=== PATIENT | female | born 2000 | race Caucasian/White ===

== ENCOUNTER 2019-10-13 17:42 | Emergency (ER) | payer BC, SELFPAY ==
--- NOTE | 2019-10-13 18:16 | ED.GENADULT ---
HPI - General Adult General Chief complaint: Upper Respiratory Infection Stated complaint: headache/ear ache/body aches Time Seen by Provider: 10/13/19 18:36 Source: patient Mode of arrival: ambulatory Limitations: no limitations History of Present Illness HPI narrative: 19-year-old female patient presents to the [facility] with complaints of flulike symptoms that started approximately 3 days ago. Patient states she has been having body aches, low-grade fevers, sore throat, slight cough. Patient states she has had some nausea and vomiting symptoms. Patient states she has been having issues with weight loss and vomiting and recently had a scope done but does not know the results yet. Denies any diarrhea or abdominal pain. Denies any or breast-feeding at this time. Patient denies getting a flu shot. Patient states she has been taking DayQuil for her symptoms. Patient states that she does vape. Related Data Home Medications Medication Instructions Recorded Confirmed fluoxetine 60 mg PO DAILY 10/13/19 10/13/19 norelgestromin-ethin.estradiol 1 patch TRANSDERMAL WEEKLY 10/13/19 10/13/19 [Xulane] Allergies Allergy/AdvReac Type Severity Reaction Status Date / Time acetaminophen Allergy Intermediate Swelling Verified 10/13/19 18:39 pamabrom Allergy Intermediate Swelling Verified 10/13/19 18:39 Review of Systems Review of Systems: Narrative: CONSTITUTIONAL: Positive low-grade fever, body aches, chills, and sweats. EYES: Denies visual changes, redness, or discharge. ENT: Positive rhinorrhea, congestion, sore throat, denies otalgia. CARDIOVASCULAR: Denies chest pain, palpitations, or edema. RESPIRATORY: Positive cough, denies dyspnea. GASTROINTESTINAL: Denies abdominal pain, nausea, vomiting, or diarrhea. GENITOURINARY: Denies dysuria or hematuria. SKIN: Denies rash or itching. MUSCULOSKELETAL: Denies back pain, joint pain, or myalgia. NEUROLOGIC: Denies headache, numbness, or weakness. PSYCHIATRIC: Denies anxiety or depression. PMFSH Comments At the time of my signature I agree with nursing past medical history, surgical, social, and family history. There is no relevant family history pertinent to the presenting complaint. Exam Narrative: Exam Narrative: GENERAL: Well-appearing, well-nourished, and in no acute distress. HEAD: Normocephalic, atraumatic. No tenderness noted to frontal maxillary sinuses on palpation. EYES: PERRLA and EOMI. ENT: Nares with erythema and edema noted bilaterally, no rhinorrhea or epistaxis. Mucous membranes moist. Posterior pharynx with no erythema, tonsil enlargement, exudates or lesions present. Bilateral TMs are clear no erythema or foreign bodies in the canal. NECK: Supple. No lymphadenopathy CHEST: Clear to auscultation. No respiratory distress. Patient able to talk in clear complete sentences. HEART: Regular rate and rhythm. No murmur heard. Normal peripheral pulses. ABDOMEN: Soft, nontender, nondistended, normal active bowel sounds. EXTREMITIES: Normal range of motion. No edema. SKIN: Warm, dry, no rash. NEURO: No focal deficits. Alert and oriented x3. Course Reevaluation(s) Reevaluation #1: Notify patient that she is positive today for influenza B. Discussed with patient that she is outside the timeframe to receive antivirals however she can continue treating herself with [id number] Tylenol, Motrin and [id number] cold and flu medication. Discussed patient I will write her off for work today tomorrow as well as over the weekend as long she is fever free she can go back on Thursday. Patient verbalized understanding denies any other questions or concerns at this time. Date: 10/13/19 Time: 18:51 Vital Signs Vital signs: Vital signs reviewed. Medical Decision Making Differential Diagnosis Differential Diagnosis: Differential diagnosis: Allergic rhinitis, chronic sinusitis, tonsillitis, acute sinusitis, infectious mononucleosis, seasonal influenza, pertussis, diphtheri
[2019-10-13 18:26] VITALS: BP 124/66; PULSE 112; RESP 14; O2SAT 100
== END 2019-10-13 18:55 | disposition home or self-care (01) ==
PROVIDERS: Emergency Provider Nurse Practitioner Family
DX: J10.1 Influenza due to other identified influenza virus with other respiratory manifestations (principal); K21.9 Gastro-esophageal reflux disease without esophagitis; F41.9 Anxiety disorder, unspecified
CPT/HCPCS: 87081; 87804; 87880; 99213; G0463

== ENCOUNTER 2022-04-08 12:04 | Emergency (ER) | payer BC, SELFPAY ==
[2022-04-08 12:11] VITALS: BP 113/57; PULSE 102; RESP 16; TEMP 36.7; O2SAT 100
--- NOTE | 2022-04-08 12:29 | ED.GENADULT ---
HPI - General Adult General Chief complaint: Upper Respiratory Infection Stated complaint: chills nausea sore throat Source: patient Mode of arrival: ambulatory Limitations: no limitations History of Present Illness HPI narrative: Patient presents for evaluation of sick symptoms since yesterday. Symptoms include chills, nausea, vomiting, diarrhea, body aches, headache, retro-orbital pain bilaterally, nonproductive cough. She denies any fever or abdominal pain. No recent sick contacts to her knowledge. She had COVID approximately 1 year ago. She did receive COVID vaccination. She is not taking any medication for symptoms. She does use an electronic cigarette. No additional complaints or concerns. Related Data Home Medications Medication Instructions Recorded Confirmed buspirone 10 mg tablet 10 mg PO BID 04/08/22 04/08/22 citalopram 40 mg tablet 40 mg PO DAILY 04/08/22 04/08/22 lorazepam 0.5 mg tablet 0.5 mg PO BID PRN Anxiety 04/08/22 04/08/22 norelgestromin 150 mcg-e.estradiol See Rx Instructions .Route .COMPLEX 04/08/22 04/08/22 35 mcg/24 hr weekly transderm patch (Zafemy) Allergies Allergy/AdvReac Type Severity Reaction Status Date / Time acetaminophen Allergy Intermediate Swelling Verified 04/08/22 12:11 pamabrom Allergy Intermediate Swelling Verified 04/08/22 12:11 Review of Systems Review of Systems: CONSTITUTIONAL: Reports chills. Denies fever.. EYES: Denies visual changes, redness, or discharge. ENT: Reports sore throat. Denies rhinorrhea, congestion, or otalgia. CARDIOVASCULAR: Denies chest pain, palpitations, or edema. RESPIRATORY: Reports cough. Denies shortness of breath. GASTROINTESTINAL: Reports nausea, vomiting, diarrhea. Denies abdominal pain GENITOURINARY: Denies dysuria or hematuria. SKIN: Denies rash or itching. MUSCULOSKELETAL: Reports generalized body aches. NEUROLOGIC: Reports headache. Denies numbness, dizziness, or weakness. PSYCHIATRIC: Denies anxiety or depression. [facility] Past Medical History Medical History (Updated 04/08/22 @ 13:30 by Charles Vuong, MIGUELITO, ) Anxiety Surgical History Surgical History No pertinent past surgical history Family History Family History Mother Multiple sclerosis Father Diabetes mellitus Social History Social History Smoking status: Current every day smoker Tobacco type: e-cigarettes/vaping Substance use: current Substance use type: marijuana Additional living arrangements comments: Lives with boyfriend Gender identity (if verbalized by the patient): Female Sexual Orientation (if Verbalized by the Patient): Straight or Heterosexual Spiritual care concerns: No Exam Narrative: GENERAL: Well-appearing, well-nourished, and in no acute distress. HEAD: Normocephalic, atraumatic. EYES: PERRLA and EOMI. ENT: Nares clear, no rhinorrhea or epistaxis. Mucous membranes moist. There is posterior pharyngeal erythema without exudate. Uvula is midline. Bilateral TMs pearly skinner nonbulging NECK: Supple. No adenopathy or masses. No carotid bruits or JVD CHEST: Clear to auscultation. No respiratory distress. No wheezes rales or rhonchi HEART: Regular rate and rhythm. No murmur heard. Normal peripheral pulses. ABDOMEN: Soft, nontender, nondistended, normal active bowel sounds. EXTREMITIES: Normal range of motion. No edema. SKIN: Warm, dry, no rash. NEURO: No focal deficits. Alert and oriented x3. PSYCH: Normal mood and affect. Course Course Emergency Course: This is a 21-year-old female who presented for evaluation of sick symptoms. Influenza testing was negative. She declined COVID test as she took a test earlier today which was negative. Her exam is consistent with acute viral syndrome. Will discharge with Tessalon and Junioran. Advised ou
== END 2022-04-08 13:30 | disposition home or self-care (01) ==
PROVIDERS: Emergency Provider Nurse Practitioner; PCP Nurse Practitioner Family
DX: B34.9 Viral infection, unspecified (principal); F17.290 Nicotine dependence, other tobacco product, uncomplicated; F41.9 Anxiety disorder, unspecified; Z86.16 Personal history of COVID-19
CPT/HCPCS: 87081; 87804; 99213; G0463

== ENCOUNTER 2022-10-03 11:37 | Emergency (ER) | payer BC, SELFPAY ==
[2022-10-03 11:51] VITALS: BP 107/61; PULSE 77; RESP 16; TEMP 36.8; O2SAT 100
--- NOTE | 2022-10-03 12:22 | ED.NAVMDI ---
HPI - Nausea/Vomiting/Diarrhea General Chief complaint: Nausea/Vomiting/Diarrhea Stated complaint: flu symptoms Time Seen by Provider: 10/03/22 12:00 Source: patient Mode of arrival: ambulatory Limitations: no limitations History of Present Illness HPI Narrative: Kristel is a 22-year-old female patient presenting to the clinic today with complaints of possible flu-like symptoms. She reports that she has had some nausea, vomiting, chills, and hot flashes today. She was sent home from work and is requesting a flu test. States that she has chronic nausea and vomiting-states she vomits every day for the past 3 years. Is seeing a GI specialist for this. Will schedule for colonoscopy earlier this year and ended up cancelling due to her work schedule. History of gallstones and marijuana use. She denies any urinary symptoms or chance of Related Data Home Medications Medication Instructions Recorded Confirmed buspirone 10 mg tablet 10 mg PO BID 04/08/22 10/03/22 citalopram 40 mg tablet 40 mg PO DAILY 04/08/22 10/03/22 lorazepam 0.5 mg tablet 0.5 mg PO BID PRN Anxiety 04/08/22 10/03/22 norelgestromin 150 mcg-e.estradiol See Rx Instructions .Route .COMPLEX 04/08/22 10/03/22 35 mcg/24 hr weekly transderm patch (Zafemy) Allergies Allergy/AdvReac Type Severity Reaction Status Date / Time acetaminophen Allergy Intermediate Swelling Verified 10/03/22 12:11 pamabrom Allergy Intermediate Swelling Verified 10/03/22 12:11 Review of Systems Review of Systems: Pertinent positives per HPI. Patient denies any fever, chills, rash, headache, visual changes, dizziness, cough, shortness of breath, chest pain, palpitations, diarrhea, constipation, abdominal pain, or any urinary issues. PMFSH Past Medical History Medical History Anxiety Surgical History Surgical History No pertinent past surgical history Family History Family History Mother Multiple sclerosis Father Diabetes mellitus Social History Social History Smoking status: Current every day smoker Tobacco type: e-cigarettes/vaping Substance use: current Substance use type: marijuana Additional living arrangements comments: Lives with boyfriend Gender identity (if verbalized by the patient): Female Sexual Orientation (if Verbalized by the Patient): Straight or Heterosexual Spiritual care concerns: No Comments At the time of my signature, I reviewed and agree with the nursing past medical, surgical, social, and family history. There is no relevant family history pertinent to the patient complaint. Exam Narrative: General: Well-developed, well nourished, in no apparent distress Head: Normocephalic, atraumatic Eyes: Pupils equally round and reactive to light bilaterally, EOM intact, sclera and conjunctive clear, no discharge, lids normal Ears: TMs intact and clear, ear canals clear, no drainage, grossly hearing normal. Nose: Nares patent, no discharge, no inflammation, no sinus tenderness. Mouth: Oral pharynx without lesions or masses, good dentition, MMM. Neck: Supple, trachea midline, no enlargement of anterior or posterior cervical nodes, no thyroid masses or goiter palpable. Cardio: Regular rate and rhythm, s1 and s2 normal, no murmur appreciated. Resp: Clear to auscultation bilaterally, no rhonchi, rales, wheezing or rubs Abdomen: Soft, pliable, nondistended, mild tenderness over the right lower quadrant that is chronic per patient, no organomegaly, no CVAT tenderness Course Course Emergency Course: Portions of this record may have been created with voice recognition software. Level of Care: Express Care Visit Vital Signs Vital signs: Vital Signs Temperature 36.8 C 10/03/22 11:
--- NOTE | 2022-10-03 12:36 | PC.NURSE ---
Pt reported to RECREATION COORDINATOR that she smokes marijuana frequently. RECREATION COORDINATOR discussed at length the link between frequent marijuana use and GI upset. Pt stated to RECREATION COORDINATOR that she has been told that before. RECREATION COORDINATOR recommending pt decrease and preferably stop marijuana use at this time.
== END 2022-10-03 12:39 | disposition home or self-care (01) ==
PROVIDERS: Emergency Provider Nurse Practitioner Family; PCP Nurse Practitioner Family
DX: R11.2 Nausea with vomiting, unspecified (principal); F41.9 Anxiety disorder, unspecified; F17.290 Nicotine dependence, other tobacco product, uncomplicated
CPT/HCPCS: 87804; 99213; G0463

== ENCOUNTER 2022-10-22 11:14 | Emergency (ER) | payer BC, SELFPAY ==
[2022-10-22 11:19] VITALS: BP 102/55; PULSE 105; RESP 20; TEMP 36.7; O2SAT 99
--- NOTE | 2022-10-22 11:25 | ED.NAVMDI ---
HPI - Nausea/Vomiting/Diarrhea General Chief complaint: Abdominal Pain Stated complaint: Abdominal Pain/Vomiting Time Seen by Provider: 10/22/22 11:26 Source: patient and RN notes reviewed History of Present Illness HPI Narrative: Patient is a 22-year-old female who presents to the Urgent Care with complaints of gallbladder issues for the last 2 years. Patient states that she had an ultrasound confirming approximately 1 month ago and her doctor is not come up with a plan. Patient states the pains are short and shooting and cause nausea and vomiting. Patient states that she presents to the Urgent Care today for a work note. Denies any urinary symptoms. Patient has not taken anything pxyl-ioh-zvlyute for her symptoms. No other acute complaints. No acute distress noted. Patient aware of the plan of care. Some parts of this dictation were generated by voice recognition software and may contain typographical and/or grammatical inaccuracies. Related Data Home Medications Medication Instructions Recorded Confirmed buspirone 10 mg tablet 10 mg PO BID 04/08/22 10/22/22 citalopram 40 mg tablet 40 mg PO DAILY 04/08/22 10/22/22 lorazepam 0.5 mg tablet 0.5 mg PO BID PRN Anxiety 04/08/22 10/22/22 Allergies Allergy/AdvReac Type Severity Reaction Status Date / Time acetaminophen Allergy Intermediate Swelling Verified 10/22/22 11:23 pamabrom Allergy Intermediate Swelling Verified 10/22/22 11:23 Review of Systems Review of Systems: CONSTITUTIONAL: Denies fever, chills, or sweats. EYES: Denies visual changes, redness, or discharge. ENT: Denies rhinorrhea, congestion, sore throat, or otalgia. CARDIOVASCULAR: Denies chest pain, palpitations, or edema. RESPIRATORY: Denies cough or dyspnea. GASTROINTESTINAL: Reports of acute on chronic abdominal discomfort, nausea and vomiting GENITOURINARY: Denies dysuria or hematuria. SKIN: Denies rash or itching. MUSCULOSKELETAL: Denies back pain, joint pain, or myalgia. NEUROLOGIC: Denies headache, numbness, or weakness. All other systems reviewed are negative, except as documented in HPI. [facility] Past Medical History Medical History Anxiety Surgical History Surgical History No pertinent past surgical history Family History Family History Mother Multiple sclerosis Father Diabetes mellitus Social History Social History Smoking status: Current every day smoker Tobacco type: e-cigarettes/vaping Substance use: current Substance use type: marijuana Additional living arrangements comments: Lives with boyfriend Gender identity (if verbalized by the patient): Female Sexual Orientation (if Verbalized by the Patient): Straight or Heterosexual Spiritual care concerns: No Comments At the time of my signature, I reviewed and agree with the nursing past medical, surgical, social, and family history. There is no relevant family history pertinent to the patient complaint. Exam Narrative: GENERAL: This is a well-nourished, well-developed patient, in no apparent distress. HEAD: normocephalic, atraumatic. EYES: PERRL. Sclera clear/white. Vision is grossly intact. EARS: External ears normal NOSE: External nose normal with no obvious nasal discharge, nares without redness, no rhinorrhea. THROAT: Mucous membranes moist NECK: Neck supple GASTROINTESTINAL: Abdomen soft, diffuse lower abdominal tenderness more noted on the left lower, nondistended. Bowel sounds are hypoactive. SKIN: warm, intact with no suspicious lesions or rash, good texture and turgor. NEURO: awake, alert, and oriented to person, place and time. There were no obvious focal neurologic abnormalities. EXTREMITIES: No clubbing, cyanosis, or edema. Course Course Level of Care: Ex
== END 2022-10-22 11:55 | disposition home or self-care (01) ==
PROVIDERS: Emergency Provider Nurse Practitioner Family; PCP Nurse Practitioner Family
DX: R10.32 Left lower quadrant pain (principal); G89.29 Other chronic pain; F41.9 Anxiety disorder, unspecified; F17.290 Nicotine dependence, other tobacco product, uncomplicated; F12.90 Cannabis use, unspecified, uncomplicated
CPT/HCPCS: 81003; 81025; 99212; G0463

== ENCOUNTER 2023-06-24 13:49 | Emergency (ER) | payer BC, SELFPAY ==
--- NOTE | ~2023-06-24 | XR_ITS ---
XR tibia fibula LT 2V 06/24/2023 14:10 INDICATION: Left leg pain PROCEDURE: 2 views left tibia/fibula COMPARISON: No prior studies for comparison. FINDINGS: Fracture, dislocation or subluxation is not identified. The soft tissues appear within norm al limits. No foreign bodies are identified. IMPRESSION: 1: NO ACUTE BONE OR JOINT ABNORMALITY IDENTIFIED. Reviewed, dictated and finalized at location B.
[2023-06-24 13:55] VITALS: BP 133/78; PULSE 107; RESP 18; TEMP 36.6; O2SAT 100
--- NOTE | 2023-06-24 15:09 | ED.LOWEXIN ---
HPI - Extremity Injury (Lower) General Chief Complaint: Extremity Injury, Lower Stated Complaint: Left Leg Injury Time Seen by Provider: 06/24/23 15:04 Source: patient and RN notes reviewed Mode of arrival: ambulatory Limitations: no limitations History of Present Illness HPI Narrative: Patient presents today with a bump to her left anterior lower leg. One month ago she dropped a heavy box on her leg causing a very large bruise. Since that time she has had pain and swelling to the villalpando area. Denies numbness or tingling. Currently rates her pain 5/10 and has been taking ibuprofen, which does provide some mild relief. Related Data Home Medications Medication Instructions Recorded Confirmed lorazepam 0.5 mg tablet 0.5 mg PO BID PRN Anxiety 04/08/22 06/24/23 Allergies Allergy/AdvReac Type Severity Reaction Status Date / Time acetaminophen Allergy Intermediate Swelling Verified 06/24/23 14:14 pamabrom Allergy Intermediate Swelling Verified 06/24/23 14:14 Review of Systems Review of Systems: CONSTITUTIONAL: Denies body aches, fever, chills, or sweats. EYES: Denies visual changes, redness, or discharge. ENT: Denies rhinorrhea, congestion, sore throat, or otalgia. CARDIOVASCULAR: Denies chest pain, palpitations, or edema. RESPIRATORY: Denies cough or dyspnea. GASTROINTESTINAL: Denies abdominal pain, nausea, vomiting, or diarrhea. GENITOURINARY: Denies dysuria or hematuria. SKIN: Denies rash, itching, or wounds. MUSCULOSKELETAL: + left villalpando pain NEUROLOGIC: Denies headache, numbness, tingling, or weakness. PSYCH: Denies depression or anxiety. [facility] Past Medical History Medical History Anxiety Surgical History Surgical History No pertinent past surgical history Family History Family History Mother Multiple sclerosis Father Diabetes mellitus Social History Social History Smoking status: Current every day smoker Tobacco type: e-cigarettes/vaping Substance use: current Substance use type: marijuana Additional living arrangements comments: Lives with boyfriend Gender identity (if verbalized by the patient): Female Sexual Orientation (if Verbalized by the Patient): Straight or Heterosexual Spiritual care concerns: No Comments At time of signature, I have reviewed and agree with nursing past medical, surgical, social and family history unless otherwise noted. Please see nursing chart for further information. There is no relevant family history pertinent to the presenting complaint Exam Narrative: GENERAL: Well-appearing, well-nourished, and in no acute distress. HEAD: Normocephalic, atraumatic. EYES: EOMI. No redness or drainage. Conjunctivae normal. ENT: Mucous membranes pink and moist. NECK: Normal AROM. CHEST: No respiratory distress. EXTREMITIES: Left lower le-5 cm round raised cyst, slightly hyperpigmented area to the left villalpando that is tender to palpation. Distal sensation intact. Capillary refill normal. SKIN: Warm, dry, no rash. Capillary refill normal. Normal skin turgor. NEURO: No focal deficits. Alert and oriented x3. Gait steady. PSYCH: Normal affect. No signs of depression or anxiety. Course Course Level of Care: Express Care Visit Vital Signs Vital signs: Vital Signs Temperature 98 F 06/24/23 13:55 Pulse Rate 107 H 06/24/23 13:55 Respiratory Rate 18 06/24/23 13:55 Blood Pressure 133/78 06/24/23 13:55 Pulse Oximetry 100 06/24/23 13:55 Oxygen Delivery Room Air 06/24/23 13:55 Temperature 98 F 06/24/23 13:55 Pulse Rate 107 H 06/24/23 13:55 Respiratory Rate 18 06/24/23 13:55 Blood Pressure 133/78 06/24/23 13:55 Pulse Oximetry 100 06/24/23 13:55 Oxygen Delivery Room Air
== END 2023-06-24 15:15 | disposition home or self-care (01) ==
PROVIDERS: Emergency Provider Nurse Practitioner; PCP Nurse Practitioner Family
DX: S80.12XA Contusion of left lower leg, initial encounter (principal); W20.8XXA Other cause of strike by thrown, projected or falling object, initial encounter; F41.9 Anxiety disorder, unspecified; F17.290 Nicotine dependence, other tobacco product, uncomplicated; F12.90 Cannabis use, unspecified, uncomplicated
CPT/HCPCS: 73590; 99213; G0463

== ENCOUNTER 2024-04-16 11:33 | Emergency (ER) | payer BC, SELFPAY ==
[2024-04-16 11:40] VITALS: BP 107/64; PULSE 89; RESP 14; TEMP 37.1; O2SAT 100
[2024-04-16 11:48] VITALS: BP 107/64; PULSE 89; RESP 14; TEMP 37.1; O2SAT 100
--- NOTE | 2024-04-16 11:51 | ED.SKABFB ---
HPI - Skin/Abscess/Foreign Bdy General Chief complaint: Skin/Abscess/Foreign Body Stated complaint: area by panti line infection Time Seen by Provider: 04/16/24 11:52 Source: patient, RN notes reviewed and old records reviewed Mode of arrival: ambulatory Limitations: no limitations History of Present Illness HPI narrative: 23 year old female presents to [facility] care with complaints of 2 smaller lesions along panty line at right groin area which started 1.5 weeks ago that have drained and are healing and then 3-4 days ago larger area of redness which is tender and firm forming along same area which has not drained. Patient reports history of MRSA in the past and similar lesions in the past.Patient reports no fevers, chills or sweats. MD complaint: abscess/boil Onset (ago): week(s) (1.5 weeks smaller areas which are healing and larger area for past 3-4 days) Location: genitals (right groin panty line) Severity scale (1-10): 5 Quality: aching and other (throbbing) Treatments prior to arrival: none Related Data Home Medications Medication Instructions Recorded Confirmed norelgestromin 150 mcg-e.estradiol See Rx Instructions .Route .COMPLEX 04/16/24 04/16/24 35 mcg/24 hr weekly transderm patch (Zafemy) Allergies Allergy/AdvReac Type Severity Reaction Status Date / Time pamabrom Allergy Intermediate Swelling Verified 04/16/24 11:39 Review of Systems Review of Systems: CONSTITUTIONAL: Denies fever, chills, or sweats. CARDIOVASCULAR: Denies chest pain, palpitations, or edema. RESPIRATORY: Denies cough or dyspnea. GASTROINTESTINAL: Denies abdominal pain, nausea, vomiting SKIN: Reports lesions 2 to right groin along panty line for the past 1.5 weeks that have drained and new 1cm lesion for the past 3-4 days that is firm raised and tender no vesicle formation, MUSCULOSKELETAL: Denies myalgia. NEUROLOGIC: Denies headache, numbness All systems reviewed & are unremarkable except as noted in HPI and below PMFSH Past Medical History Medical History Anxiety Hx of nasal polyp Lip injury surgical repair due to trauma MRSA (methicillin resistant Staphylococcus aureus) axilla Family History Family History Mother Multiple sclerosis Father Diabetes mellitus Social History Social History Smoking status: Current every day smoker Tobacco type: e-cigarettes/vaping Substance use: current Substance use type: marijuana Additional living arrangements comments: Lives with boyfriend Gender identity (if verbalized by the patient): Female Sexual Orientation (if Verbalized by the Patient): Straight or Heterosexual Spiritual care concerns: No Comments At time of signature, agree with nursing past medical, surgical, social and family history. There is no relevant family history pertinent to the presenting complaint Exam Narrative: GENERAL: Well-appearing, well-nourished, and in no acute distress. HEAD: Normocephalic, atraumatic. EYES: PERRLA and EOMI. ENT: Nares clear, no rhinorrhea or epistaxis. Mucous membranes moist. NECK: Supple.no lymphadenopathy CHEST: Clear to auscultation. No respiratory distress.SAO2 100% on room air HEART: Regular rate and rhythm. No murmur heard. Normal peripheral pulses. ABDOMEN: Soft, nontender, nondistended, normal active bowel sounds. EXTREMITIES: Normal range of motion. No edema. SKIN: Warm, dry. Erythema, induration, tenderness, warmth lesion 1cm in diameter with no fluctuation, to right groin along panty line (2) 0.5cm lesion which have drained and are healing. NEURO: No focal deficits. Alert and oriented x3. Course Course Emergency Course: Patient is aware of diagnosis, understands and agrees to treatment plan. Anticipatory guidance given. Patient agrees to follow-up as directed and is aware of reasons
== END 2024-04-16 12:20 | disposition home or self-care (01) ==
PROVIDERS: Emergency Provider Registered Nurse; PCP Nurse Practitioner Family
DX: L02.214 Cutaneous abscess of groin (principal); F17.290 Nicotine dependence, other tobacco product, uncomplicated; F12.90 Cannabis use, unspecified, uncomplicated; Z86.14 Personal history of Methicillin resistant Staphylococcus aureus infection
CPT/HCPCS: 99213; G0463

== ENCOUNTER 2024-06-03 11:55 | Emergency (ER) | payer BC, SELFPAY ==
[2024-06-03 12:04] VITALS: BP 105/53; PULSE 96; RESP 16; TEMP 37; O2SAT 100
--- NOTE | 2024-06-03 12:40 | ED.NAVMDI ---
HPI - Nausea/Vomiting/Diarrhea General Chief complaint: Nausea/Vomiting/Diarrhea Stated complaint: Diarrhea/nausea Time Seen by Provider: 06/03/24 12:40 Source: patient and RN notes reviewed Mode of arrival: ambulatory Limitations: no limitations History of Present Illness HPI Narrative: 23-year-old female presents with concern for nausea and diarrhea that started at 4:00 a.m.. She denies vomiting or abdominal pain she denies fever. Reports she is eating and drinking. Reports she missed work today. MD elicited complaint: nausea and diarrhea Related Data Home Medications Medication Instructions Recorded Confirmed norelgestromin 150 mcg-e.estradiol patch 06/03/24 35 mcg/24 hr weekly transderm patch (Xulane) Allergies Allergy/AdvReac Type Severity Reaction Status Date / Time pamabrom Allergy Intermediate Swelling Verified 06/03/24 12:03 Review of Systems Review of Systems: CONSTITUTIONAL: Denies malaise, chills, sweats, or fever. ENT: Denies rhinorrhea, congestion, sinus pain, otalgia or sore throat. CARDIOVASCULAR: Denies chest pain, palpitations, or edema. RESPIRATORY: Denies cough or dyspnea. GASTROINTESTINAL: Denies abdominal pain, vomiting, bloody, or mucous stools. Reports nausea and diarrhea GENITOURINARY: Denies dysuria or hematuria. MUSCULOSKELETAL: Denies myalgia. NEUROLOGIC: Denies headache. All systems reviewed & are unremarkable except as noted in HPI and below PMFSH Past Medical History Medical History Anxiety Hx of nasal polyp Lip injury surgical repair due to trauma MRSA (methicillin resistant Staphylococcus aureus) axilla Family History Family History Mother Multiple sclerosis Father Diabetes mellitus Social History Social History Smoking status: Current every day smoker Tobacco type: e-cigarettes/vaping Substance use: current Substance use type: marijuana Additional living arrangements comments: Lives with boyfriend Gender identity (if verbalized by the patient): Female Sexual Orientation (if Verbalized by the Patient): Straight or Heterosexual Spiritual care concerns: No Comments At time of signature, agree with nursing past medical, surgical, social and family history. There is no relevant family history pertinent to the presenting complaint Exam Narrative: GENERAL: Well-appearing, well-nourished, and in no acute distress. HEAD: Normocephalic, atraumatic. EYES: PERRLA, conjunctivae clear, and EOMI. ENT: Nares clear. Mucous membranes moist. NECK: Supple. No lymphadenopathy CHEST: Speaks in full sentences. No respiratory distress. HEART: Regular rate and rhythm. SKIN: Warm, dry, no rash. NEURO: Alert and oriented x3. PSYCH: Normal mood and affect Course Course Emergency Course: Patient is aware of diagnosis, understands and agrees to treatment plan. Anticipatory guidance given. Patient agrees to follow-up as directed and is aware of reasons to seek care at the emergency department. Portions of this record may have been created with voice recognition software Level of Care: Express Care Visit Vital Signs Vital signs: Vital Signs Temperature 98.6 F 06/03/24 12:04 Pulse Rate 96 06/03/24 12:04 Respiratory Rate 16 06/03/24 12:04 Blood Pressure 105/53 L 06/03/24 12:04 Pulse Oximetry 100 06/03/24 12:04 Oxygen Delivery Room Air 06/03/24 12:04 Temperature 98.6 F 06/03/24 12:04 Pulse Rate 96 06/03/24 12:04 Respiratory Rate 16 06/03/24 12:04 Blood Pressure 105/53 L 06/03/24 12:04 Pulse Oximetry 100 06/03/24 12:04 Oxygen Delivery Room Air 06/03/24 12:04 Reviewed. MDM - Nausea/Vomiting/Diarrhea MDM Narrative Medical decision making narrative: I evaluated this patient in the express care. History is obtained from patient w
== END 2024-06-03 12:50 | disposition home or self-care (01) ==
PROVIDERS: Emergency Provider Nurse Practitioner
DX: R19.7 Diarrhea, unspecified (principal); F17.290 Nicotine dependence, other tobacco product, uncomplicated; F12.90 Cannabis use, unspecified, uncomplicated; Z86.14 Personal history of Methicillin resistant Staphylococcus aureus infection
CPT/HCPCS: 99211; G0463

== ENCOUNTER 2024-08-10 08:04 | Emergency (ER) | payer BC, SELFPAY ==
[2024-08-10 08:09] VITALS: BP 124/75; PULSE 114; RESP 16; TEMP 36.7; O2SAT 100
--- NOTE | 2024-08-10 08:28 | ED.URI ---
HPI - URI/Sore Throat General Chief Complaint: Upper Respiratory Infection Stated Complaint: throat pain Time Seen by Provider: 08/10/24 08:28 Source: patient and RN notes reviewed Mode of arrival: ambulatory Limitations: no limitations History of Present Illness HPI Narrative: 24-year-old female presents with concern for sore throat and nasal congestion. She reports she did the COVID and flu tests home morning that were negative. She reports 2 day history of symptoms. Reports she feels little bit better today. She denies any fever, body aches, chills, sweats. Reports mild nausea MD elicited complaint: sore throat and nasal congestion Related Data Home Medications ?Medication ?Instructions ?Recorded ?Confirmed ?Last Taken ?Type norelgestromin 150 mcg-e.estradiol patch 06/03/24 Unknown History 35 mcg/24 hr weekly transderm patch (Xulane) Allergies Allergy/AdvReac Type Severity Reaction Status Date / Time pamabrom Allergy Intermediate Swelling Verified 08/10/24 08:20 Review of Systems Review of Systems: CONSTITUTIONAL: Denies malaise, chills, sweats, or fever. EYES: Denies visual changes, redness, or discharge. ENT: Reports rhinorrhea, congestion, and sore throat. CARDIOVASCULAR: Denies chest pain, palpitations, or edema. RESPIRATORY: Denies cough. Denies dyspnea. GASTROINTESTINAL: Denies abdominal pain, vomiting, diarrhea. Reports mild nausea SKIN: Denies rash or itching. MUSCULOSKELETAL: Denies myalgia. NEUROLOGIC: Denies headache. All systems reviewed & are unremarkable except as noted in HPI and below PMFSH Past Medical History Medical History Anxiety Hx of nasal polyp Lip injury surgical repair due to trauma MRSA (methicillin resistant Staphylococcus aureus) axilla Family History Family History Mother Multiple sclerosis Father Diabetes mellitus Social History Social History Smoking status: Current every day smoker Tobacco type: e-cigarettes/vaping Substance use: current Substance use type: marijuana Additional living arrangements comments: Lives with boyfriend Gender identity (if verbalized by the patient): Female Sexual Orientation (if Verbalized by the Patient): Straight or Heterosexual Spiritual care concerns: No Comments At time of signature, agree with nursing past medical, surgical, social and family history. There is no relevant family history pertinent to the presenting complaint Exam Narrative: GENERAL: Well-appearing, well-nourished, and in no acute distress. HEAD: Normocephalic EYES: PERRLA, conjunctivae clear ENT: Nares clear, turbinates edematous and erythematous, clear discharge. Mucous membranes moist. TM pearly skinner with dull light reflex bilaterally; no tragal tenderness. Oropharynx not erythematous without lesions. Tonsils not enlarged and without exudate, no drooling, no hoarseness, no trismus, uvula midline. NECK: Supple. No lymphadenopathy CHEST: Clear to auscultation, breath sounds equal. No wheezing, rhonchi, rales, or stridor. No respiratory distress, speaks in full sentences. HEART: Regular rate and rhythm. No murmur heard. SKIN: Warm, dry, no rash. NEURO: Alert and oriented x3. PSYCH: Normal mood and affect Course Course Emergency Course: Patient is aware of diagnosis, understands and agrees to treatment plan. Anticipatory guidance given. Patient agrees to follow-up as directed and is aware of reasons to seek care at the emergency department. Portions of this record may have been created with voice recognition software Level of Care: Express Care Visit Vital Signs Vital signs: Vital Signs Temperature 98.1 F 08/10/24 08:09 Pulse Rate 114 H 08/10/24 08:09 Respiratory Rate 16 08/10/24 08:09 Blood Pressure 124/75 08/10/24 08:09 Pulse Oximetry 100 08/10/24 08:09 Oxygen Delivery Room Air 08/10/24 08:09 Temperature 98.1 F 08/10/24 08:09 Pulse Rate 114 H 08/10/24 08:09 Respiratory Rate 16 08/10/24 08:09 Blood Pressure 124/75 08/10/24 08:09 Pulse Oximetry 100 08/10/24 08:09 Oxygen Delivery Room Air 08/10/24 08:09 Reviewed. MDM - URI/Sore Throat MDM Narrative Medical decision making narrative: Differential diagnosis considered: Ac virus, strep pharyngitis, allergic rhinitis, upper respiratory tract infection, sinusitis, rhinosinusitis, nasopharyngitis. viral pharyngitis, otitis media, otitis externa, pneumonia, bronchitis, viral cough syndrome, viral syndrome, and influenza. Exam findings show no acute concerns or changes; patient is non-toxic appearing and is in no distress. Patient is appropriate for outpatient treatment and follow-up. Lab Data Attestation: I reviewed the patient's lab results. Critical Care Time Critical Care Time Critical Care Time: No Discharge Plan Discharge Clinical Impression: Upper respiratory infection Patient Disposition: Home, Self-Care Condition: Stable Instructions: Upper Respiratory Infection (ED) Additional Instructions: Your rapid strep swab was negative today at [facility]. A throat culture will be sent to the laboratory for further testing. If the test is positive, you will receive a phone call within 48 hours and an appropriate antibiotic will be initiated at that time. Your symptoms are likely due to a viral illness, which is not treated with antibiotics. Viral symptoms can be present for up to a few weeks. -Alternate Tylenol and Motrin per package directions for fever or pain. -Antihistamine medication such as Benadryl at night and Zyrtec during the day can help improve symptoms. -Eat and drink things that are easy to swallow, like tea or soup, or popsicles to suck on. -Oral rinses such as: Salt water gargles and/or may use topical anesthetic (eg. Chloraseptic spray) or lozenges to relieve dryness or throat pain). -Frequent hand washing or hand automatic car wash attendant is one of the best ways to prevent spread of infection. -Follow up with primary care provider in 2-3 days if condition is not improving; or seek ER visit if you have trouble breathing, cannot drink enough fluids, have muffled voice, difficulty opening your mouth, or severe swelling. Patient Language: Bel[place]ian Prescriptions: New pseudoephedrine HCl [12 Hour Decongestant] 120 mg tablet extended release 120 mg PO Q12H PRN (Reason: nasal congestion) Qty: 20 0RF No Action norelgestromin-ethin.estradiol [Xulane] 150-35 mcg/24 hr patch weekly Follow-up/Referrals: Jesus,BERNADETTE MorelandP [Primary Care Provider] - Stand Alone Forms: Work/School Release IP Time of Disposition: 08:36
[2024-08-10 09:10] LABS: EDSTREPNEGPOS1 Negative (Negative)
== END 2024-08-10 08:41 | disposition home or self-care (01) ==
PROVIDERS: Emergency Provider Nurse Practitioner; PCP Nurse Practitioner Family
DX: J06.9 Acute upper respiratory infection, unspecified (principal); F17.290 Nicotine dependence, other tobacco product, uncomplicated; F12.90 Cannabis use, unspecified, uncomplicated
CPT/HCPCS: 87081; 87880; 99213; G0463